=== PATIENT | male | born 2000 | race Caucasian/White ===

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

== ENCOUNTER 2023-11-12 13:30 | Outpatient (CLI) | payer BC, SELFPAY | END 2023-11-12 13:31 | disposition home or self-care (01) | LOC: SLEEP 11-13 08:11 | PROVIDERS: Family Provider Nurse Practitioner Family; Visit Provider Otolaryngology | DX: G47.33 Obstructive sleep apnea (adult) (pediatric) (principal) | CPT/HCPCS: G0399 ==

== ENCOUNTER 2023-12-13 08:59 | Emergency (ER) | payer BC, SELFPAY ==
[2023-12-13 09:10] VITALS: BP 128/84; PULSE 90; RESP 18; TEMP 36.8; O2SAT 98; BMI 40.6
--- NOTE | 2023-12-13 09:29 | W.ED.GENADLT ---
HPI - General Adult General: Chief complaint: General Medical Stated complaint: urgent care sent, numb face Time Seen by Provider: 12/13/23 09:07 Source: patient Mode of arrival: ambulatory History of Present Illness: 23-year-old male reports waking up with right-sided facial numbness that began yesterday progressively worsened he has ear pain facial droop and tearing of the right eye. He has difficult time closing the eye. No other symptoms no visual changes. No significant medical problems in the past patient is a smoker. Associated symptoms: Deny chest pain, confusion, cough, diaphoresis, decreased appetite, dyspnea, fevers/chills, headache(s), malaise, nausea, rash, palpitations, seizures, short of breath, syncope, vomiting or weakness Review of Systems Const: Denies: fever(s), chills, malaise or diaphoresis Card: Denies: chest pain, palpitations or syncope Resp: Denies: dyspnea GI: Denies: abdominal pain, nausea or vomiting : Denies: dysuria, urinary frequency or urinary urgency Musc: Denies: neck pain or back pain Skin/Breast: Denies: rash Neuro: Denies: headache(s) or confusion PFSH ED PFSH: Surgical History History of myringotomy Family History Grandmother Diabetic acidosis, type I Social History Smoking and tobacco/nicotine status: current every day tobacco/nicotine user cigarettes Alcohol intake: current Alcohol intake frequency: holidays/special occasions only Physical Exam Const: GENERAL APPEARANCE: cooperative and comfortable ORIENTATION/CONSCIOUSNESS: Yes awake, Yes oriented to person, Yes oriented to place and Yes oriented to time HENMT: COMMON NORMALS: normocephalic, atraumatic and hearing grossly normal bilaterally HEAD & SCALP: normocephalic and atraumatic Resp: COMMON NORMALS: normal respiratory effort, No retractions, No use of accessory muscles and clear to auscultation bilaterally AUSCULTATION: clear to auscultation bilaterally Cardio: COMMON NORMALS: regular rate, regular rhythm and No murmurs present (Cardio) RATE: regular rate RHYTHM: regular rhythm GI: COMMON NORMALS: Soft to palpation and No hepatosplenomegaly present AUSCULTATION: Yes normoactive bowel sounds PALPATION: Yes Soft to palpation, No Tenderness to palpation present (GI), No Guarding due to palpation present (GI) and Yes No hepatosplenomegaly present Extremity: COMMON NORMALS: normal to inspection, capillary refill normal, no clubbing, cyanosis or edema, no calf tenderness and no pedal edema Neuro: SENSORIUM/ORIENTATION: Yes oriented to person, Yes oriented to place and Yes oriented to time OTHER: Isolated right-sided facial droop. Findings consistent with a Yepez's palsy no other focal neurologic deficits are noted. Skin: COMMON NORMALS: no rashes or lesions noted GENERAL SKIN EXAM: no rashes or lesions noted Course Vital Signs: Vital signs: Vital Signs Temperature 98.2 F 12/13/23 09:10 Pulse Rate 90 12/13/23 09:10 Respiratory Rate 18 12/13/23 09:10 Blood Pressure 128/84 12/13/23 09:10 Pulse Oximetry 98 12/13/23 09:10 Oxygen Delivery Me thod Room Air 12/13/23 09:10 MDM - General Adult Medical Decision Making Patient presents with typical Yepez's palsy with progression to to the facial droop. He has some softball player associated with it as well. The remainder of his exam is unremarkable. Recommend is on 50 mg daily for 7 days and follow-up with his primary care provider. Discussed the usual course of Yepez's palsy with the patient. Medical Records I reviewed the patient's medical records. Lab Data I reviewed the patient's lab results. 12/13/23 09:25 12/13/23 09:25 Laboratory Results WBC 9.77 10^3/uL (3.29-11.43) 12/13/23 09:25 RBC 5.14 10^6/uL (3.85-5.65) 12/13/23 09:25 Hgb 15.40 g/dL (11.27-16.99) 12/13/23 09:25 Hct 45.8 % (37-53) 12/13/23 09:25 MCV 89.1 fl (82-101) 12/13/23 09: MCH 30.0 pg (27-33) 12/13/23 09:25 MCHC 33.6 g/dL (30-55) 12/13/23 09:25 RDW 12.6 % (12.1-15.1) 12/13/23 09:25 Plt Count 238 10^3/cmm (157-399) 12/13/23 09:25 MPV 10.6 fL (7.4-10.4) H 12/13/23 09:25 Neut % (Auto) 59.2 % 12/13/23 09:25 Lymph % (Auto) 30.5 % 12/13/23 09:25 [place] % (Auto) 5.9 % 12/13/23 09:25 Eos % (Auto) 3.8 % 12/13/23 09:25 Baso % (Auto) 0.3 % 12/13/23 09:25 Neut # (Auto) 5.78 10^3/uL (1.8-7.7) 12/13/23 09:25 Lymph # (Auto) 3.0 10^3/uL (0.8-4.8) 12/13/23 09:25 [place] # (Auto) 0.6 10^3/uL (0.2-0.9) 12/13/23 09:25 Eos # (Auto) 0.4 10^3/uL (0.0-0.8) 12/13/23 09:25 Baso # (Auto) 0.0 10^3/uL (0.0-0.1) 12/13/23 09:25 Nucleated RBC % (auto) 0 % 12/13/23 09: Nucleated RBCs # 0.0 /100WBC 12/13/23 09:25 Sodium 140 mmol/L (136-145) 12/13/23 09:25 Potassium 4.3 mmol/L (3.5-5.1) 12/13/23 09:25 Chloride 102 mmol/L (98-107) 12/13/23 09:25 Carbon Dioxide 25 mmol/L (22-29) 12/13/23 09:25 Anion Gap 17.3 (5-19) 12/13/23 09:25 BUN 14 mg/dL (6-20) 12/13/23 09:25 Creatinine 0.7 mg/dL (0.7-1.2) 12/13/23 09:25 GFR Calculation 142.4 mL/min (90-130) H 12/13/23 09:25 Glucose 133 mg/dL (65-115) H 12/13/23 09:25 Calculated Osmolality 292 mOsm/kg (285-295) 12/13/23 09:25 Calcium 9.3 mg/dL (8.5-10.5) 12/13/23 09:25 Total Bilirubin 0.4 mg/dL (0.15-1.2) 12/13/23 09:25 AST 23 U/L (0-40) 12/13/23 09:25 ALT 53 U/L (0-41) H 12/13/23 09:25 Alkaline Phosphatase 86 U/L (40-130) 12/13/23 09:25 Total Protein 7.7 g/dL (6.6-8.7) 12/13/23 09:25 Albumin 4.5 g/dL (3.5-5.2) 12/13/23 09:25 Globulin 3.2 g/dL (1.3-4.6) 12/13/23 09:25 No radiology studies performed this visit Discharge Plan Discharge Patient Disposition: Home Clinical Impression: Right-sided Yepez's palsy Condition: Stable Prescriptions: New prednisone 50 mg tablet 50 mg PO DAILY 7 Days Qty: 7 0RF Discharge Orders: Discharge ED (Routine); Ordered 12/13/23 Ordered By: Jorge Leo Referrals: Marcio Cary FNP [Primary Care Provider] - Discharge Diet: Usual diet Discharge Activity: Resume usual activity Patient Instructions: Yepez Palsy (ED), Opioid Safety, Pain Management Activity Restrictions/Additional Instructions: Thank you for choosing [facility] for your healthcare needs today. Please realize this is an emergency room and that we are providing you with a medical screening exam and this may not be complete and all inclusive of all the testing and or work up that you may need to determine your ailment or severity of your illness. It is very important that you follow up as instructed or that you return to the Emergency Department should you have concerns or if your condition changes or worsens in any way. You are seen today with acute Yepez's palsy. Will start you on a course of steroids recommend you follow-up with your primary care provider within the next week. Coding Level of Care Code ED Environmental Services Manager for Farzana Alvarado
[2023-12-13 09:52] LABS: Basophils % 0.3 %; Eosinophils # 0.4 10^3/uL (0.0-0.8); Eosinophils % 3.8 %; Hematocrit 45.8 % (37-53); Lymphocytes % 30.5 %; Mean Corpuscular HGB Conc 33.6 g/dL (30-55); Mean Corpuscular Volume 89.1 fl (82-101); Mean Platelet Volume 10.6 fL (7.4-10.4); Monocytes # 0.6 10^3/uL (0.2-0.9); Monocytes % 5.9 %; Neutrophils # 5.78 10^3/uL (1.8-7.7); Neutrophils % 59.2 %; Nucleated Red Blood Cells % 0 %; Platelet Count 238 10^3/cmm (157-399); Red Blood Count 5.14 10^6/uL (3.85-5.65); Red Cell Distribution Width 12.6 % (12.1-15.1); White Blood Count 9.77 10^3/uL (3.29-11.43)
[2023-12-13 10:16] LABS: Alanine Aminotransferase 53 U/L (0-41); Albumin Level 4.5 g/dL (3.5-5.2); Alkaline Phosphatase 86 U/L (40-130); Anion Gap 17.3 (5-19); Aspartate Amino Transferase 23 U/L (0-40); Blood Urea Nitrogen 14 mg/dL (6-20); Calcium 9.3 mg/dL (8.5-10.5); Carbon Dioxide 25 mmol/L (22-29); Chloride 102 mmol/L (98-107); Creatinine Clr Calc Pharmacy 238.4514; Globulin 3.2 g/dL (1.3-4.6); Glomerular Filtration Rate 142.4 mL/min (90-130); Glucose 133 mg/dL (65-115); Osmolality Calculated 292 mOsm/kg (285-295); Potassium 4.3 mmol/L (3.5-5.1); Sodium 140 mmol/L (136-145); Total Bilirubin 0.4 mg/dL (0.15-1.2); Total Protein 7.7 g/dL (6.6-8.7)
== END 2023-12-13 09:34 | disposition home or self-care (01) ==
PROVIDERS: Emergency Provider Family Medicine; PCP Nurse Practitioner Family
DX: G51.0 Bell's palsy (principal); F17.210 Nicotine dependence, cigarettes, uncomplicated
CPT/HCPCS: 36415; 80053; 85025; 99283

== ENCOUNTER 2024-03-18 20:00 | Outpatient (CLI) | payer BC, SELFPAY | END 2024-03-18 20:01 | disposition home or self-care (01) | LOC: SLEEP 23:18 | PROVIDERS: PCP Nurse Practitioner Family; Visit Provider Otolaryngology | DX: G47.33 Obstructive sleep apnea (adult) (pediatric) (principal); Z99.89 Dependence on other enabling machines and devices | CPT/HCPCS: 95811 ==

== ENCOUNTER → 2024-03-26 08:35 | Outpatient (BNVA) | payer BC, SELFPAY | PROVIDERS: PCP Nurse Practitioner Family | DX: M25.461 Effusion, right knee (principal) | CPT/HCPCS: 73562 ==

== ENCOUNTER → 2024-03-30 09:56 | Outpatient (BNVA) | payer BC, SELFPAY | PROVIDERS: PCP Nurse Practitioner Family; Visit Provider Nurse Practitioner | DX: M25.461 Effusion, right knee (principal) | CPT/HCPCS: 73560; 73565 ==